=== PATIENT | male | born 1995 | race American Indian/Alaskan Native ===

== ENCOUNTER 2021-10-17 07:52 | Outpatient (CLI) | payer BC ==
--- NOTE | 2021-10-17 13:02 | Cat Scan Report ---
CT ABDOMEN AND PELVIS WITH CONTRAST INDICATION / CLINICAL INFORMATION: R10.31 RLQ PAIN. TECHNIQUE: Axial CT images were obtained through the abdomen and pelvis after 100 cc Omnipaque 350 IV contrast. Oral contrast was also administered. All CT scans at this location are performed using CT dose reduct ion for ALARA by means of automated exposure control. COMPARISON: None available. FINDINGS: LOWER CHEST: No significant abnormality. LIVER: Scattered simple cysts in the right hepatic lobe measure up to 7 mm. No other significant abno rmality. GALLBLADDER: No significant abnormality. BILE DUCTS: No significant abnormality. PANCREAS: No significant abnormality. SPLEEN: No significant abnormality. ADRENALS: No significant abnormality. RIGHT KIDNEY/URETER: A simple upper pole cyst measures 1.7 cm. No other significant abnormality. LEFT KIDNEY/URETER: No significant abnormality. STOMACH/SMALL BOWEL: No significant abnormality. COLON: No significant abnormality. APPENDIX: No significant abnormality. PERITONEUM: No free fluid. No free air. No fluid collection. LYMPH NODES: No significant adenopathy. VASCULATURE: No significant abnormality. URINARY BLADDER: No significant abnormality. REPRODUCTIVE ORGANS: No significant abnormality. ADDITIONAL FINDINGS: None. BONES: No significant abnormality IMPRESSION: 1. No significant abnormality to explain the patient's right lower quadrant pain. Signer Name: Stu Juarez MD Signed: 10/17/2021 12:58 PM Workstation Name: Scheduling [employer]
== END 2021-10-17 07:53 | disposition home or self-care (01) ==
LOC: CT 07:52
DX: K76.89 Other specified diseases of liver (principal); N28.1 Cyst of kidney, acquired; R10.31 Right lower quadrant pain
CPT/HCPCS: 74177; Q9967